=== PATIENT | male | born 1950 | race African-American/Black ===

== ENCOUNTER → 2016-12-02 | Outpatient (CLI) | payer BC ==
[2015-02-01 07:30] VITALS: BP 156/77
[~2016-12-02] MED LIST: AMLO10TA2 PO; ASPI-482 PO; ATOR10TA60 PO; CARV25TA2 PO; DOCU100T11 PO; HYDR-2666 PO; LISI-334 PO; METF500T4 PO; MULT-18 PO; MULT1TAB52 PO; NITR0.4T SL; POTA10CA PO; PROAIR HFA8.5 GM IH; TRIA1CAP3 PO
--- NOTE | 2016-12-02 12:21 | KCIC ---
PROCEDURE Three-view left foot HISTORY Left foot pain at the 2nd through 4th toes for 3 weeks. No recent injury. COMPARISON None FINDINGS No evidence of acute fracture or bone destruction. Joint spaces and alignment are intact. Mild degenerative osteophytes identified. Small calcaneal enthesophytes are identified. No evidence of significant soft tissue abnormality. Small chronic ossicle or spurring identified between the 1st and 2nd proximal metatarsals. IMPRESSION No acute fracture or dislocation. Electronically signed by: Tyron Quiles MD (Dec 02, 2016 12:19:50)
== END | disposition home or self-care (01) ==
LOC: KCIC 10:49
PROVIDERS: ATTEND Family Medicine
DX: M79.672 Pain in left foot (principal)
CPT/HCPCS: 73630

== ENCOUNTER → 2017-05-16 | Outpatient (CLI) | payer BC ==
[2015-02-01 07:30] VITALS: BP 156/77
[~2017-05-16] MED LIST changes: -HYDR-2666 PO; +HYDR-2758 PO; -POTA10CA PO; +POTASSIUM CHLO10 MEQ PO
--- NOTE | 2017-05-16 11:48 | RAD ---
Indication chronic lung disease. PA and lateral views of the chest were obtained. Comparison is made to an examination 01/21/2016. Heart size is at the upper limits of normal but unchanged. There is some minimal volume loss at the lung bases likely reflecting atelectasis or scar. A consolidated pneumonia is not seen. Significant pleural fluid is not present. There is no pneumothorax. IMPRESSION: Unchanged heart size. Volume loss at the lung bases, mild, likely reflecting atelectasis or scar. No definite acute finding in the chest
== END | disposition home or self-care (01) ==
LOC: RAD 11:04
PROVIDERS: ATTEND Internal Medicine Pulmonary Disease
DX: J98.4 Other disorders of lung (principal)
CPT/HCPCS: 71020

== ENCOUNTER → 2017-05-25 | Outpatient (CLI) | payer BC ==
[2015-02-01 07:30] VITALS: BP 156/77
--- NOTE | 2017-05-28 11:08 | PDOC ---
Provider Note Provider Note Pulmonary function test Pt underwent full pulmonary function test at [facility] on . Patient's FVC was 2.79 which was 77% predicted FEV1 was 2.36 which is 84% predicted. The FEV1/ FVC ratio was normal .no bronchodilators were given. Total lung capacity was 104% predicted. Diffusion capacity was 86% predicted. Impression 1. No significant obstructive airway disease. 2. Normal total lung capacity .3 Normal diffusion capacity LD BUNCH MD May 28, 2017 11:08
== END | disposition home or self-care (01) ==
LOC: PF 07:39
PROVIDERS: ATTEND Internal Medicine Pulmonary Disease
DX: R06.00 Dyspnea, unspecified (principal)
CPT/HCPCS: 94010; 94729

== ENCOUNTER → 2017-06-28 | Outpatient (CLI) | payer BC ==
[2015-02-01 07:30] VITALS: BP 156/77
--- NOTE | 2017-07-03 14:10 | SLEEP ---
DATE OF STUDY: 06/28/2017 ATTENDING PHYSICIAN: Adrien Mendoza M.D. REFERRING PHYSICIAN: Anum Grya M.D. The patient is 66 years old, who weighs 219 pounds with a BMI of 33. The patient's [place] score was 8. The patient has history of sleep apnea diagnosed in 2008 and was positive for MARY, but was unable to wear CPAP. He did lose 20 pounds since then. During the night of study, the patient spent 420 minutes in bed and slept for 381 minutes with a sleep efficiency of 91%. Sleep latency was 11 minutes with a REM latency of 193 minutes. Overall, sleep architecture showed increased stage I sleep, reduced stage II sleep, increased slow wave and normal REM sleep. During the night of study, the patient had 42 obstructive apneas, no mixed and 2 central apneas. There were 26 hypopneas. The patient's apnea-hypopnea index was 11 per hour with a supine index of 30 per hour and REM index of 17 per hour. Review of nocturnal oximetry study revealed an average oxygen saturation of 96% with the lowest of 83%. 8% of time oxygen saturation remained between 80% and 89%. PLMS were seen at the index of 1 per hour and none caused EEG arousals. EKG monitoring revealed a heart rate of 73 beats per minute. No sustained arrhythmias were observed. Due to low AHI, the patient did not met the split night criteria for CPAP initiation. IMPRESSION: 1. Mild sleep apnea-hypopnea syndrome with moderate increase during rapid eye movement sleep and worsening during supine sleep. Total apnea-hypopnea index of 11 per hour, rapid eye movement apnea-hypopnea index of 17 per hour and supine apnea-hypopnea index of 30 per hour. 2. Mild nocturnal hypoxia secondary to obstructive sleep apnea. 3. No clinically significant periodic limb movements during sleep. RECOMMENDATIONS: 1. The patient's sleep apnea can be treated with multiple options. Oral appliance as recommended by the dentist would be one treatment option. Alternatively a trial of CPAP titration can be initiated. 2. Avoid supine sleep. 3. Avoid [employer] depressants. 4. Caution regarding driving until symptoms of sleep apnea resolve with the above recommendations. 5. Weight loss is strongly advised. LD UBNCH MD DR: JOYCE/ricardo JOB#: [id number] / [id number] ANUM Espino MD, TERRY MD MTDD
== END | disposition home or self-care (01) ==
LOC: SLPLAB 18:28
PROVIDERS: ATTEND Internal Medicine Pulmonary Disease
DX: G47.33 Obstructive sleep apnea (adult) (pediatric) (principal)
CPT/HCPCS: 95810

== ENCOUNTER → 2018-01-24 | Outpatient (CLI) | payer BC | END | disposition home or self-care (01) | LOC: KCIC CT 08:16 | DX: J32.9 Chronic sinusitis, unspecified (principal); J34.1 Cyst and mucocele of nose and nasal sinus; M27.0 Developmental disorders of jaws; J34.2 Deviated nasal septum | CPT/HCPCS: 70486 ==

== ENCOUNTER → 2018-07-27 | Outpatient (CLI) | payer BC ==
[2015-02-01 07:30] VITALS: BP 156/77
[~2018-07-27] MED LIST changes: -AMLO10TA2 PO; +AMLO10TA6 PO; +METF500T16 PO; -METF500T4 PO; +POTA10TA12 PO; -POTASSIUM CHLO10 MEQ PO
--- NOTE | 2018-07-27 12:55 | KCIC ---
EXAM: Left shoulder, 3 views. HISTORY: Chronic pain. COMPARISON: None. FINDINGS: 3 views of the left shoulder obtained. There is no fracture, dislocation or subluxation. IMPRESSION: No acute osseous finding. Electronically signed by: Tammy Phipps MD (07/27/2018 12:52 PM) [place] [id number]
== END | disposition home or self-care (01) ==
LOC: KCIC 12:12
PROVIDERS: ATTEND Family Medicine
DX: M25.512 Pain in left shoulder (principal); I10 Essential (primary) hypertension
CPT/HCPCS: 73030

== ENCOUNTER → 2018-09-03 | Outpatient (CLI) | payer BC ==
[2015-02-01 07:30] VITALS: BP 156/77
[~2018-09-03] MED LIST changes: +BUPIVACAINE MPF 0.5% 10 ML VIAL for KCIC. IJ ONE; +IOHEXOL 300 MG/ML 50 ML VIAL. INT ART ONE; +LIDOCAINE 1% Multi-Dose 20 ML VIAL. ID ONE; +methylPREDNISolone ACETATE 40 MG/ML VIAL. INT ART ONE
--- NOTE | 2018-09-04 09:39 | KCIC ---
Therapeutic left bicipital groove injection using fluoroscopic guidance. HISTORY: Pain. TECHNIQUE The procedure was explained to the patient as were potential risks, including among others infection, bleeding or allergic reaction. All questions were answered. Informed written consent was obtained. The anterior shoulder was prepped and draped in the usual sterile manner. Following administration of local anesthetic, a 22-gauge needle was advanced to the bicipital groove without difficulty. Following negative aspiration, a mixture of 1 cc (40 mg) Depo-Medrol, and 1 cc 0.5% Marcaine were injected without difficulty. The needle was removed. There was good hemostasis at the injection site. The patient left in stable condition without immediate complication. Patient was advised regarding postprocedural complications, with instructions to contact us, there are physician or the ER if there are any problems. A single spot image is obtained. FLUOROSCOPY TIME: 1 minute 25 seconds Electronically signed by: Tyron Quiles MD (09/04/2018 9:36 AM) [id number]
== END | disposition home or self-care (01) ==
LOC: KCIC 12:06
PROVIDERS: ATTEND Orthopaedic Surgery Sports Medicine
DX: M25.512 Pain in left shoulder (principal); G89.29 Other chronic pain
CPT/HCPCS: 20610; 77002; J1030; Q9967

== ENCOUNTER → 2020-05-01 | Outpatient (CLI) | payer BC ==
[2015-02-01 07:30] VITALS: BP 156/77
[~2020-05-01] MED LIST changes: +ALBU2.5V8 IH; -AMLO10TA6 PO; +AMLO10TA8 PO; -BUPIVACAINE MPF 0.5% 10 ML VIAL for KCIC. IJ ONE; -HYDR-2758 PO; +HYDR-2761 PO; -IOHEXOL 300 MG/ML 50 ML VIAL. INT ART ONE; -LIDOCAINE 1% Multi-Dose 20 ML VIAL. ID ONE; +MULT-445 PO; -MULT1TAB52 PO; -NITR0.4T SL; +NITR0.4T24 SL; -PROAIR HFA8.5 GM IH; -methylPREDNISolone ACETATE 40 MG/ML VIAL. INT ART ONE
--- NOTE | 2020-05-01 13:24 | RAD ---
Lumbar spine 5 views. HISTORY: Libby joint, M [age], low back pain radiating to left leg and numbness 5 views were taken lumbar spine including obliques views. There is slight scoliosis. There is mild bowel distention in a nonspecific pattern. Oblique views show no spondylolysis. There is mild lower lumbar facet arthritis. There are mild hypertrophic changes. There is slight retrolisthesis of L2 relative to L3. IMPRESSION: 1. Mild retrolisthesis of L2 relative to L3. 2. Mild hypertrophic changes. 3. Slight scoliosis. 4. No fracture or other acute osseous abnormality. Electronically signed by: Vitor Garza MD (05/01/2020 1:21 PM) [id number]
== END ==
LOC: RAD 11:05
PROVIDERS: ATTEND Family Medicine
DX: M46.86 Other specified inflammatory spondylopathies, lumbar region (principal)
CPT/HCPCS: 72110

== ENCOUNTER → 2022-04-13 | Outpatient (CLI) | payer BC, MEDICARE ==
[2015-02-01 07:30] VITALS: BP 156/77
[~2022-04-13] MED LIST changes: +AMLO-187 PO; -AMLO10TA8 PO; +IOHEXOL 240 MG/ML 50ML VIAL. PO ONE; +IOHEXOL 300 MG/ML 100ML VIAL. IV ONE; -LISI-334 PO; +LISI20TA18 PO
--- NOTE | 2022-04-13 15:59 | KCIC ---
INDICATION: Reason: Diastasis recti. Two abdominal surgeries. / Spl. Instructions: 100cc Omni 300 / History: COMPARISON: CT report from August 2009 TECHNIQUE: Axial CT images were obtained through the abdomen and pelvis with intravenous contrast. One or more of the following individualized dose reduction techniques were utilized for this examinat ion: 1. Automated exposure control; 2. Adjustment of the mA and/or kV according to patient size; 3 . Use of iterative reconstruction technique. FINDINGS: Linear opacities at lung bases commonly from atelectasis. Coronary artery calcific atherosclerosis. Vascular: Calcific atherosclerosis. Hepatobiliary: Liver is low density which can be seen with fatty infiltration. Postcholecystectomy. Within the upper abdomen adjacent to the pancreas and liver there are some enlarged lymph nodes. For example portacaval region measuring up to about 17 mm short axis. Pancreas: No peripancreatic edema. Spleen: Spleen unremarkable. Renal/Bladder: Minimal urine within the bladder with prominent wall thickness. Prostate prominent in size. No hydronephrosis. Gastrointestinal: Contrast is seen within the large and small bowel without evidence of bowel obstruc tion. Degenerative changes of the spine with multilevel central canal and neural foraminal stenosis. There is postoperative changes to the anterior abdominal wall with some laxity of the abdominal wall near midline. Degenerative changes of the hips and spine. IMPRESSION: * Postoperative changes to the anterior abdominal wall with mesh seen within the region as well as bulging of the anterior abdominal wall at this site with the mesh superficial to this region * Urinary bladder wall is prominent in thickness. Could be secondary to lack of distention or partia l outlet obstruction from enlarged prostate with pathologic causes such as cystitis or a bladder wall lesion not excluded given this prominence. * Enlarged lymph nodes in the upper abdomen which could be reactive in nature unless the patient has a history of neoplasm. Follow-up could be obtained in a few months to ensure no growth. Electronically signed by: Hermann Carolina MD (04/13/2022 3:05 PM) [id number]
== END ==
LOC: KCIC CT 12:29
PROVIDERS: ATTEND Surgery
DX: R59.0 Localized enlarged lymph nodes (principal); R91.8 Other nonspecific abnormal finding of lung field; J98.11 Atelectasis; I25.10 Atherosclerotic heart disease of native coronary artery without angina pectoris; M47.819 Spondylosis without myelopathy or radiculopathy, site unspecified; M48.00 Spinal stenosis, site unspecified; M16.0 Bilateral primary osteoarthritis of hip; Z90.49 Acquired absence of other specified parts of digestive tract; M62.08 Separation of muscle (nontraumatic), other site; Z98.890 Other specified postprocedural states
CPT/HCPCS: 74177; Q9966; Q9967